=== PATIENT | male | born 1980 | race Caucasian/White ===

== ENCOUNTER → 2017-07-24 | Outpatient (CLI) | payer BC ==
[~2017-07-24] MED LIST: AZITHROMYCIN 2250 MG PO; NOHOMEMEDICATIONS; PROMETHAZINE-D120 ML PO; VENTOLIN HFA INH8 GM IH
--- NOTE | 2017-07-25 09:01 | TST ---
[place] [address] TREADMILL STRESS TEST Name: NICOLE COLLAZO Room: [facility]#: [id number] Admission: 07/24/17 Attend Phys: Marie Vasquez Discharge: Date of : 84 Date of Service: 07/24/17 1422 Report #: [id number] THIS REPORT FOR: //name// CC: Dr. Samm Li DATE OF SERVICE: 07/24/2017 EXERCISE STRESS TEST INDICATIONS: Exercise stress test was requested in this patient with a history of palpitations. PROCEDURE IN DETAIL: The patient was exercised on a Satya protocol from a pretest heart rate of 52, blood pressure 124/82. The patient was able to exercise for 13 minutes and 25 seconds achieving a peak heart rate of 171, which was greater than 90% of maximum predicted heart rate for the patient's age. His peak blood pressure is 170/70. In recovery, the patient had a heart rate of 84, blood pressure 113/72. The patient denied chest pain with exercise, which was terminated because of fatigue. The patient's resting ECG showed a normal sinus bradycardia with no ST or T-wave change. With exercise, the patient was noted to develop J-point depression, but there was no significant ST-segment depression at 80 milliseconds after the J-point. There was no arrhythmia noted with exercise. IMPRESSION: 1. Excellent exercise tolerance. 2. No chest pain with exercise. 3. No ischemic ST segment changes noted with exercise. 4. Negative exercise stress test for myocardial ischemia. 5. This exercise stress test was felt to represent a low risk for future cardiac events. <ELECTRONICALLY SIGNED> By: Hua Cardoso MD, FACC 07/25/17 0901 1422 [id number] Hua Cardoso MD, FACC /nt
== END ==
LOC: M.CRD 10:24
DX: J18.9 Pneumonia, unspecified organism (principal)

== ENCOUNTER → 2019-04-02 | Outpatient (CLI) | payer BC ==
--- NOTE | 2019-04-08 14:11 | SLEEP ---
[facility] [address] [place] [address] SLEEP STUDY REPORT Name: NICOLE COLLAZO Room: [facility]#: [id number] Admission: 04/02/19 Attend Phys: Dyan Barrera Discharge: Date of : 84 Report #: [id number] THIS REPORT FOR: //name// CC: Anselmo Shay This study has been reviewed in its entirety by a board certified sleep specialist DATE OF SERVICE: 04/03/2019 HOME SLEEP STUDY REFERRING PHYSICIAN: Anselmo Shay DO The patient is a 39-year-old who weighs 234 pounds with a BMI of 32.5. The patient underwent home sleep study performed by [facility]. Total recording time was 577 minutes. During the night study, the patient had 63 obstructive apneas, 1 central apnea, no mixed apneas and 28 hypopneas. The patient's apnea hypopnea index was 11.4 per hour with a supine index of 13 per hour. Nocturnal oximetry study revealed an average oxygen saturation of 93% with the lowest of 83%. Nine minutes were spent in oxygen saturation of less than 90%. Mean heart rate 64 beats per minute with a maximum of 93 beats per minute. IMPRESSION: 1. Mild sleep apnea-hypopnea syndrome at an AHI of 11.4 per hour. 2. Mild nocturnal hypoxia secondary to obstructive sleep apnea. RECOMMENDATIONS: 1. The patient has mild sleep apnea. This can be initially treated with weight loss. 2. If the patient remains clinically symptomatic or has other comorbid conditions, then the patient's sleep apnea can be treated with either CPAP versus oral appliance. 3. Avoid POTATO BUCKER depressants. 4. Cautioned regarding driving until symptoms of sleep apnea resolve with the above recommendations. <ELECTRONICALLY SIGNED> By: Micha Keen MD 04/08/19 1411 1313 [id number] Keen MD /nt
== END ==
LOC: M.SLEEPLAB 13:51
DX: G47.33 Obstructive sleep apnea (adult) (pediatric) (principal)